=== PATIENT | female | born 1985 | race Caucasian/White ===

== ENCOUNTER 2020-11-11 21:56 | Emergency (ER) | payer BC ==
--- NOTE | 2020-11-11 23:48 | EDM.PDOC ---
ED HPI GENERAL MEDICAL PROBLEM - General Stated Complaint: HURT ANKLE Time Seen by Provider: 11/11/20 21:56 Source of Information: Reports: Patient History Limitations: Reports: No Limitations - History of Present Illness INITIAL COMMENTS - FREE TEXT/NARRATIVE: Pt. presents to ER with complaints of R lateral ankle pain. She states that she injured it while dancing at a dance tonight, unknown specifically what happened. She complains of significant discomfort and is unable to bear any weight. She required assistance getting into the ER and was unable to ambulate. Pt. denies any previous injury to the joint. Denies any numbness/tingling in distal portion of extremity. Denies any injury elsewhere other what is isolated to the lateral ankle area. Onset: Today Location: Reports: Lower Extremity, Right Quality: Reports: Ache, Pressure, Sharp, Stabbing, Throbbing Associated Symptoms: Reports: Nausea/Vomiting. Denies: Fever/Chills - Related Data Allergies Allergy/AdvReac Type Severity Reaction Status Date / Time No Known Allergies Allergy Verified 11/11/20 22:16 ED ROS GENERAL - Review of Systems Review Of Systems: See Below Constitutional: Reports: No Symptoms HEENT: Reports: No Symptoms Respiratory: Reports: No Symptoms Cardiovascular: Reports: No Symptoms Endocrine: Reports: No Symptoms GI/Abdominal: Reports: Abdominal Pain, Anorexia, Nausea. Denies: Black Stool, Bloody Stool, Constipation, Diarrhea, Difficulty Swallowing, Distension, Hematemesis, Hematochezia, Melena, Vomiting : Reports: No Symptoms Musculoskeletal: Reports: No Symptoms Skin: Reports: No Symptoms Neurological: Reports: No Symptoms Psychiatric: Reports: No Symptoms Hematologic/Lymphatic: Reports: No Symptoms Immunologic: Reports: No Symptoms ED EXAM, GENERAL - Physical Exam Exam: See Below Exam Limited By: No Limitations General Appearance: Alert, WD/WN, No Apparent Distress Throat/Mouth: Normal Inspection, Normal Lips, Normal Teeth, Normal Gums, Normal Oropharynx, Normal Voice, No Airway Compromise Head: Atraumatic, Normocephalic Neck: Normal Inspection, Supple, Non-Tender Respiratory/Chest: No Respiratory Distress, Lungs Clear, Normal Breath Sounds, No Accessory Muscle Use, Chest Non-Tender Cardiovascular: Normal Peripheral Pulses, Regular Rate, Rhythm, No Edema, No JVD, No Murmur Peripheral Pulses: 4+: Radial (R) GI/Abdominal: Soft, No Distention, No Mass, Tender, Other (No veronica colored stools or tea colored urine) (Female) Exam: Deferred Rectal (Female) Exam: Deferred Back Exam: Normal Inspection, Full Range of Motion Extremities: Normal Inspection, Normal Range of Motion, Non-Tender, No Pedal Edema, Normal Capillary Refill Neurological: Alert, Oriented, CN II-XII Intact, Normal Cognition, Normal Gait, Normal Reflexes, No Motor/Sensory Deficits Psychiatric: Normal Affect, Normal Mood Skin Exam: Warm, Dry, Intact, Normal Color, No Rash Lymphatic: No Adenopathy Course - Orders/Labs/Meds Orders: Active Orders 24 hr Category Date Time Status Ankle Min 3V Rt [CR] Stat Exams 11/11/20 22:16 Taken DME for Discharge [COMM] Stat Oth 11/11/20 22:46 Ordered DME for Discharge [COMM] Stat Oth 11/11/20 22:47 Ordered - Radiology Interpretation Free Text/Narrative:: No fracture on dislocation noted on 3 view R ankle. Departure - Departure Time of Disposition: 23:00 Disposition: Home, Self-Care 01 Clinical Impression: Right ankle sprain - Discharge Information Instructions: Ankle Sprain, [id number] Referrals: PCP,None [Primary Care Provider] - Additional Instructions: Home to rest. Ibuprofen 200mg 3 tabs every 6 hours as needed for pain. Use splint and BRIT wrap for at least a week. recheck in clinic in 7-10 days Use crutches for now. You can slowly start bearing weight as you feel you are able. Elevate R lower extremity above heart as much as possible. Ice painful area for 15 min every hour. - Problem List Review Problem List Initiated/Reviewed/Updated: Yes - My Orders Last 24 Hours: My Active Orders 11/11/20 22:16 Ankle Min 3V Rt [CR] Stat 11/11/20 22:46 DME for Discharge [COMM] Stat 11/11/20 22:47 DME for Discharge [COMM] Stat - Assessment/Plan Last 24 Hours: My Active Orders 11/11/20 22:16 Ankle Min 3V Rt [CR] Stat 11/11/20 22:46 DME for Discharge [COMM] Stat 11/11/20 22:47 DME for Discharge [COMM] Stat Plan: Aircast was placed on R foot/ankle to assist with pain control/support. She was given crutches to assist with ambulation. Ice ankle for 10-15 min every 1-2 hours Ibuprofen as needed for pain Recheck in clinic in 7-10 days
--- NOTE | 2020-11-12 10:04 | CR ---
[id number] RAD/RAD Ankle Right 3V Min EXAM: 3 VIEWS RIGHT ANKLE. INDICATION: LATERAL PAIN AND SWELLING TO ANKLE, INJURED DANCING COMPARISON: None. DISCUSSION: No fracture, dislocation or other acute osseous abnormality. Soft tissue edema adjacent to the lateral malleolus. IMPRESSION: 1. No acute osseous abnormalities. Soft tissue edema adjacent to the lateral malleolus. Jose Angel Barraza DO 11/12/20 1003 Thank you for allowing us to participate in the care of your patient.
== END 2020-11-11 23:00 | disposition home or self-care (01) ==
LOC: VM.ED 21:56
DX: S93.401A Sprain of unspecified ligament of right ankle, initial encounter (principal); X50.1XXA Overexertion from prolonged static or awkward postures, initial encounter; Y93.41 Activity, dancing
CPT/HCPCS: 73610-RT; 99283; 99283-25